=== PATIENT | male | born 1980 | race Caucasian/White ===

== ENCOUNTER 2023-11-03 21:31 | Emergency (ER) | payer SELFPAY ==
[~2023-11-03] VITALS: Ht 172.7 cm; Wt 79.5 kg
[2023-11-04] MEDS ORDERED: bacitracin 15gm ointment TP ONE (01:20)
[2023-11-04] MEDS ORDERED: TETanus/Pertussis (Acell)/Diphther VAC/PF (Tdap-Adult) 0.5ml syringe IMVAC ONE (01:20)
[2023-11-04] MEDS ORDERED: ondansetron 4mg rapidly disintigrating tab PO ONE (01:20)
[2023-11-04] MEDS ORDERED: amox tr/potassium clavulanate 875/125mg TAB PO ONE (01:20)
[2023-11-04] MEDS ORDERED: AMOX-115 PO (01:22)
[2023-11-04] MEDS ORDERED: LIDOcaine 1% (10mg/ml)w/preservative inj. 20ml MDV IJ ONE (01:30)
[2023-11-04 01:54] VITALS: BP 112/62; PULSE 60; RESP 16; TEMP 98.1; O2SAT 100
== END 2023-11-04 01:58 | disposition home or self-care (01) ==
LOC: ER 21:32
DX: S01.511A Laceration without foreign body of lip, initial encounter (principal); Z79.2 Long term (current) use of antibiotics; W54.0XXA Bitten by dog, initial encounter; Y93.89 Activity, other specified; Y92.89 Other specified places as the place of occurrence of the external cause; Y99.8 Other external cause status
CPT/HCPCS: 12011; 90471; 90715; 99284; J3490